=== PATIENT | female | born 1955 | race Caucasian/White ===

== ENCOUNTER 2022-12-22 17:27 | Emergency (ER) | payer SELFPAY ==
[2022-12-22 17:45] VITALS: BP 153/87; PULSE 103; RESP 16; TEMP 99.1; BMI 33.1
== END 2022-12-22 20:13 | disposition home or self-care (01) ==
LOC: FER 17:27
DX: S52.501A Unspecified fracture of the lower end of right radius, initial encounter for closed fracture (principal); W01.198A Fall on same level from slipping, tripping and stumbling with subsequent striking against other object, initial encounter
CPT/HCPCS: 73110-TC-RT-FY; 99283-25